=== PATIENT | female | born 1975 | race Caucasian/White ===

== ENCOUNTER 2019-06-13 18:17 | Emergency (ER) | payer BC ==
[2019-06-13] MEDS ORDERED: KETOROLAC 30 MG/ML VIAL IVP ONE (18:26)
[2019-06-13] MEDS ORDERED: 0.9 % SODIUM CHLORIDE 1000ML 1,000 ML IV SCH (18:30)
--- NOTE | 2019-06-13 18:31 | Emergency Department Record ---
History of Present Illness - General Chief Complaint: Abdominal Pain Stated Complaint: LOWER ABD PAIN Time Seen by Provider: 06/13/19 18:25 Source: Patient Mode of Arrival: Ambulatory Limitations: No limitations - History of Present Illness Initial Comments: 43 yo female presents to ED for evaluation of lower abdominal pain symptoms described as "cramping" for the past 2-3 weeks. Patient denies urinary symptoms, vaginal discharge symptoms, fevers, chills, nausea, vomiting, or change in stools. Patient reports previous ablation, denies other abdominal surgeries. Patient did take Motrin this morning which improved her symptoms somewhat as well. Patient denies health problems at her baseline. MD Complaint: Abdominal pain -: Week(s) Location: Suprapubic Radiation: None Migration to: No migration, LUQ Quality: Cramping Consistency: Intermittent Improves With: Nothing Worsens With: Nothing Associated Symptoms: Denies other symptoms - Related Data Patient : No Home Medications Medication Instructions Recorded Confirmed Last Taken Escitalopram Oxalate [Lexapro] 10 mg PO DAILY 06/13/19 06/13/19 Unknown Temazepam 30 mg PO QHS 06/13/19 06/13/19 Unknown Previous Rx's Medication Instructions Recorded Clindamycin HCl 300 mg PO QID #39 capsule 06/13/19 Allergies Allergy/AdvReac Type Severity Reaction Status Date / Time sulfamethoxazole Allergy RASH Verified 06/13/19 18:29 [From Bactrim] trimethoprim [From Bactrim] Allergy RASH Verified 06/13/19 18:29 erythromycin base AdvReac vomit Verified 06/13/19 18:29 Review of Systems Constitutional: Denies: Chills, Fever, Malaise, Night sweats Eyes: Denies: Eye discharge, Eye pain, Photophobia ENT: Denies: Congestion, Ear pain, Epistaxis Respiratory: Denies: Cough, Dyspnea Cardiovascular: Denies: Chest pain, Dyspnea on exertion Endocrine: Denies: Fatigue, Heat or cold intolerance Gastrointestinal: Reports: Abdominal pain. Denies: Constipation, Nausea, Vomiting Genitourinary: Denies: Incontinence, Retention Musculoskeletal: Denies: Arthralgia, Back pain Skin: Denies: Bruising, Change in color Neurological: Denies: Abnormal gait, Confusion, Headache Psychiatric: Denies: Anxiety Hematological/Lymphatic: Denies: Anemia, Blood Clots Physical Exam - General General Appearance: Alert, Oriented x3, Cooperative, Mild distress Limitations: No limitations - Head Head exam: Atraumatic, Normocephalic, Normal inspection Head exam detail: negative: Abrasion, Contusion, Augustin's sign, General tenderness, Hematoma, Laceration - Eye Eye exam: Normal appearance. negative: Conjunctival injection, Periorbital swelling, Periorbital tenderness, Scleral icterus - ENT Ear exam: negative: Auricular hematoma, Auricular trauma Nasal Exam: negative: Active bleeding, Discharge, Dried blood, Foreign body Mouth exam: negative: Drooling, Laceration, Muffled voice, Tongue elevation - Neck Neck exam: Normal inspection. negative: Meningismus, Tenderness - Respiratory Respiratory exam: Normal lung sounds bilaterally. negative: Respiratory distress, Rhonchi, Stridor, Wheezes - Cardiovascular Cardiovascular Exam: Regular rate, Normal rhythm, Normal heart sounds - GI/Abdominal GI/Abdominal exam: Soft, Tenderness, Other (No rebound, guarding, or peritoneal signs on examination. Mild discomfort with palpation of the lower abdomen.). negative: Distended, Rebound, Rigid - Rectal Rectal exam: Deferred - exam: Deferred - Extremities Extremities exam: Normal inspection. negative: Pedal edema, Tenderness - Back Back exam: Denies: CVA tenderness (R), CVA tenderness (L) - Neurological Neurological exam: Alert, Normal gait, Oriented X3 - Psychiatric Psychiatric exam: Normal affect, Normal mood - Skin Skin exam: Normal color. negative: Abrasion Type of lesion: negative: abrasion Course - Reevaluation(s) Reevaluation #1: 06/13/19 19:05 Initial laboratory studies were reviewed and appear grossly unremarkable for an acute process. Reevaluation #2: 06/13/19 20:09 CT Abdomen and Pelvis: Bicornate uterus on examinatio, appears fluid-filled Recommend pelvic US for further evaluation. Reevaluation #3: 06/13/19 20:28 UA was reviewed: 0-2 RBCs 0-2 WBCs 2+ Bacteria Negative Patient was updated on all results, offered to treat for potential endometritis with Clindamycin and to return to ED for US in the AM. Patient reports that she has not had a menses following her procedure in February (ablation) Has an appointment with Dr. Perales ([employer]) next Monday. Patient is declining to return to ED for US at this timw, will treat with Clindamycin as discussed. Patient appears stable for discharge with instructions to return for any worsening of her symptoms. Medical Decision Making - Lab Data Result diagrams: 06/13/19 18:00 06/13/19 18:00 Disposition Disposition: Discharge Clinical Impression: Uterine cramping Disposition: Home, Self-Care Condition: (2) Stable Instructions: Abdominal Pain (ED) Additional Instructions: Return to ED if your symptoms worsen or if you have any concerns. Ibuprofen and Clindamycin as directed. Follow-up with Dr. Angella Fleming as scheduled. Prescriptions: Clindamycin HCl 300 mg PO QID #39 capsule Forms: Patient Portal Access Time of Disposition: 20:30 Quality - Quality Measures Quality Measures: N/A - Blood Pressure Screening Does Patient Have Any of the Following: No Blood Pressure Classification: Hypertensive Reading Systolic Measurement: 161 Diastolic Measurement: 103 Screening for High Blood Pressure: < First Hypertensive BP, F/U Documented > [G8950] First Hypertensive Follow-up Interventions: Referral to alternative/primary care provider.
[2019-06-13 18:46] LABS: ABSOLUTE NEUTROPHIL COUNT 5.66; BASO % 0.6 % (0-6); EOS % 2.7 % (0-6); GRAN % 66.7 % (47-80); HEMATOCRIT 40.2 % (35.0-47.0); HEMOGLOBIN 13.1 gm/dl (11.6-16.0); LYMPH % 23.4 % (16-45); MEAN CORPUSCULAR HEMOGLOBIN 28.7 pg (27-33); MEAN CORPUSCULAR HGB CONC 32.6 g/dl (32-36); MEAN PLATELET VOLUME 10.3 fl (7.4-10.4); MONO % 6.6 % (0-9); PLATELET COUNT 343 K/uL (130-400); RED BLOOD COUNT 4.57 M/uL (3.80-5.40); RED CELL DISTRIBUTION WIDTH 14.1 % (11.5-14.5); WHITE BLOOD COUNT W/O DIFF 8.5 K/uL (4.2-12.2)
[2019-06-13 19:02] LABS: BLOOD UREA NITROGEN 13 mg/dL (6-20)
[2019-06-13 19:03] LABS: BILIRUBIN,TOTAL < 0.20 mg/dL (0.2-1.0); CREATININE 0.8 mg/dL (0.5-0.9); EST GLOMERULAR FILTRATION RATE > 60 mL/min; LIPASE 49 U/L (13-60); TOTAL PROTEIN 6.7 g/dL (6.6-8.7)
[2019-06-13 19:05] LABS: GLUCOSE,RANDOM 144 mg/dL (74-109)
[2019-06-13 19:08] LABS: ALB/GLOB RATIO 1.7 (1.1-1.8); ALBUMIN 4.2 g/dL (4.0-5.0); ALKALINE PHOSPHATASE 88 U/L (35-104); ALT/SGPT 26 U/L (<33); AST/SGOT 16 U/L (10.0-35.0)
[2019-06-13 20:05] LABS: URINE APPEARANCE CLEAR; URINE BILIRUBIN NEGATIVE (NEGATIVE); URINE BLOOD NEGATIVE (NEGATIVE); URINE KETONE NEGATIVE (NEGATIVE); URINE LEUKOCYTE ESTERASE TRACE (NEGATIVE); URINE NITRITE POSITIVE (NEGATIVE)
[2019-06-13 20:10] LABS: URINE COLOR ORANGE
[2019-06-13 20:13] LABS: URINE BACTERIA 2+; URINE RBC 0 - 2 (NONE SEEN); URINE WBC 0 - 2 (0-2/hpf)
[2019-06-13] MEDS ORDERED: CLINDAMYCIN 150 MG CAP PO ONE (20:31)
--- NOTE | 2019-06-17 18:39 | CT SCAN REPORT ---
EXAM: CT SCAN ABDOMEN/PELVIS W CONTRAST HISTORY: LOWER ABDOMEN PAIN. COMPARISON: None. TECHNIQUE: After the uneventful administration of intravenous contrast, contiguous axial sections obtained through the abdomen and pelvis. Coronal and sagittal reformats provided. FINDINGS: Visualized lung bases are clear. Liver is fatty-infiltrated. Multiple low-attenuation lesions of the kidneys bilaterally are too small to characterize but statistically are cysts. Gallbladder is present and appears contracted. No pericholecystic fluid. The spleen, pancreas, and adrenals appear normal. Biliary tree is not dilated. No abdominal aortic aneurysm. Mesenteric vessels are grossly patent. GI tract is nondilated. Appendix is normal. No mesenteric or retroperitoneal adenopathy evident. The uterus appears to be septate or bicornuate. The endometrium appears fluid-filled. Abdominal wall grossly intact. There is mild spurring of the spine. IMPRESSION: 1. THERE APPEARS TO BE A SEPTATE OR BICORNUATE UTERUS. THE ENDOMETRIUM APPEARS FILLED WITH FLUID. PELVIC ULTRASOUND CAN FURTHER INVESTIGATE. 2. FATTY INFILTRATION OF THE LIVER. 3. ADDITIONAL FINDINGS, ABOVE. 4. THE ER WAS NOTIFIED BY VOICE CLIP. JOB NUMBER: [id number] MTDD
== END 2019-06-13 20:43 | disposition home or self-care (01) ==
LOC: ER 18:17
DX: N94.89 Other specified conditions associated with female genital organs and menstrual cycle (principal); R10.12 Left upper quadrant pain
CPT/HCPCS: 74177; 80053; 81001; 81025; 83690; 85025; 96374; 99284; J1885; J7030

== ENCOUNTER 2019-07-07 04:16 | Emergency (ER) | payer BC ==
[2019-07-07] MEDS ORDERED: ONDANSETRON HCL IV 4 MG/2 ML VIAL IV ONE (04:39)
[2019-07-07] MEDS ORDERED: 0.9 % SODIUM CHLORIDE 1,000 ML BAG IV ONE ×2 (04:39→05:38)
[2019-07-07] MEDS ORDERED: HYDROMORPHONE HCL 2 MG/ML VIAL IVP ONE ×2 (04:46→05:37)
--- NOTE | 2019-07-07 04:46 | Emergency Department Record ---
History of Present Illness - General Chief Complaint: Abdominal Pain Stated Complaint: ABDOMINAL PAIN Time Seen by Provider: 07/07/19 04:38 Source: Patient Mode of Arrival: Ambulatory - History of Present Illness Initial Comments: The patient was seen here on 06-15-19 for bilateral lower abdominal pain and was sent to her Power Line Installer. Dr. Perales for follow up. She had an ultrasound done in the office and was told her uterine lining was thickened and her uterus enlarged to twice normal in size. She has had two uterine ablations in the past and has another appointment scheduled for 07-16-19 for scheduling of a possible hysterectomy. Tonight she perez 8/10 lower abdominal pain radiating into both hips and low back, which has never happened before. She took tramadol at 0100, 2 adv il at 0300. Vomited twice. These medications have not controlled her pain. Onset/Timin -: Hour(s) Location: Bilateral flank, LLQ, RLQ Severity scale (1-10): 8 Quality: Sharp, Stabbing Consistency: Constant Improves With: Nothing Worsens With: Movement Associated Symptoms: Denies other symptoms - Related Data LMP (females 10-50): 3 months ago Patient : No Home Medications Medication Instructions Recorded Confirmed Last Taken Tramadol HCl [Ultram] 50 mg PO Q6H PRN 07/07/19 07/07/19 07/07/19 Previous Rx's Medication Instructions Recorded Hydrocodone/Acetaminophen [[place] 1 each PO Q8HR PRN #10 tablet 07/07/19 5-325 Tablet] Allergies Allergy/AdvReac Type Severity Reaction Status Date / Time sulfamethoxazole Allergy RASH Verified 06/13/19 18:29 [From Bactrim] trimethoprim [From Bactrim] Allergy RASH Verified 06/13/19 18:29 erythromycin base AdvReac vomit Verified 06/13/19 18:29 Travel Screening - Travel/Exposure Within Last 30 Days Have you traveled within the last 30 days?: No - Travel/Exposure Within Last Year Have you traveled outside the [place] in the last year?: No - Additonal Travel Details Have you been exposed to anyone with a communicable illness?: No - Travel Symptoms Symptom Screening: None Review of Systems Reviewed: No additional complaints except as noted below Constitutional: Reports: As per HPI. Denies: Chills, Fever, Malaise, Night sweats, Weakness, Weight change Eyes: Reports: As per HPI. Denies: Eye discharge, Eye pain, Photophobia, Vision change ENT: Reports: As per HPI. Denies: Congestion, Dental pain, Ear pain, Epistaxis, Hearing loss, Throat pain Respiratory: Reports: As per HPI. Denies: Cough, Dyspnea, Hemoptysis, Stridor, Wheezes Cardiovascular: Reports: As per HPI. Denies: Arrhythmia, Chest pain, Dyspnea on exertion, Edema, Murmurs, Orthopnea, Palpitations, Paroxysmal nocturnal dyspnea, Rheumatic Fever, Syncope Endocrine: Reports: As per HPI. Denies: Fatigue, Heat or cold intolerance, Polydipsia, Polyuria Gastrointestinal: Reports: As per HPI. Denies: Abdominal pain, Constipation, Diarrhea, Hematemesis, Hematochezia, Melena, Nausea, Vomiting Genitourinary: Reports: As per HPI. Denies: Abnormal menses, Discharge, Dyspareunia, Dysuria, Frequency, Hematuria, Incontinence, Retention, Urgency Musculoskeletal: Reports: As per HPI. Denies: Arthralgia, Back pain, Gout, Joint swelling, Myalgia, Neck pain Skin: Reports: As per HPI. Denies: Bruising, Change in color, Change in hair/nails, Lesions, Pruritus, Rash Neurological: Reports: As per HPI. Denies: Abnormal gait, Confusion, Headache, Numbness, Paresthesias, Seizure, Tingling, Tremors, Vertigo, Weakness Psychiatric: Reports: As per HPI. Denies: Anxiety, Auditory hallucinations, Depression, Homicidal thoughts, Suicidal thoughts, Visual hallucinations Hematological/Lymphatic: Reports: As per HPI. Denies: Anemia, Blood Clots, Easy bleeding, Easy bruising, Swollen glands Past Medical History - SOCIAL HISTORY Smoking Status: Never smoker Alcohol Use: None Drug Use: None - RESPIRATORY Hx Respiratory Disorders: No - CARDIOVASCULAR Hx Cardio Disorders: No - NEURO Hx Neuro Disorders: No - GI Hx GI Disorders: Yes Hx Reflux: Yes - Hx Genitourinary Disorders: Yes Hx Kidney Stones: Yes - ENDOCRINE Hx Endocrine Disorders: No - MUSCULOSKELETAL Hx Musculoskeletal Disorders: No - PSYCH Hx Psych Problems: Yes Hx Anxiety: Yes Hx Depression: Yes - HEMATOLOGY/ONCOLOGY Hx Hematology/Oncology Disorders: No Family Medical History Any Significant Family History?: No Physical Exam - General General Appearance: Alert, Oriented x3, Cooperative, Moderate distress - Head Head exam: Normal inspection - Eye Eye exam: Normal appearance, PERRL, Conjunctival injection, EOMI. negative: Nystagmus, Scleral icterus Pupils: Normal accommodation - ENT ENT exam: Normal exam, Mucous membranes moist, Normal external ear exam, Normal orophraynx, TM's normal bilaterally Ear exam: Normal external inspection. negative: External canal tenderness Nasal Exam: Normal inspection. negative: Discharge, Sinus tenderness Mouth exam: Normal external inspection, Tongue normal Teeth exam: Normal inspection. negative: Dental caries Throat exam: Normal inspection. negative: Tonsillar erythema, Tonsillar exudate - Neck Neck exam: Normal inspection, Full ROM. negative: Lymphadenopathy, Meningismus, Tenderness - Respiratory Respiratory exam: Normal lung sounds bilaterally. negative: Accessory muscle use, Respiratory distress - Cardiovascular Cardiovascular Exam: Regular rate, Normal rhythm, Normal heart sounds - GI/Abdominal GI/Abdominal exam: Soft, Normal bowel sounds, Tenderness (lower abdominal fullness over areas of pain bilaterally, left greater than right.). negative: Distended, Rebound, Rigid - Rectal Rectal exam: Deferred - exam: Deferred - Extremities Extremities exam: Normal inspection, Full ROM, Normal capillary refill. negative: Tenderness - Back Back exam: Reports: Normal inspection, Full ROM. Denies: CVA tenderness (R), CVA tenderness (L), Muscle spasm, Rash noted, Tenderness - Neurological Neurological exam: Alert, Normal gait, Oriented X3, Reflexes normal - Psychiatric Psychiatric exam: Normal affect, Normal mood - Skin Skin exam: Dry, Intact, Normal color, Warm Course Vital Signs 07/07/19 07/07/19 04:20 04:22 Temperature 97.9 F Pulse Rate [ 74 Pulse Ox Probe] Respiratory 20 Rate Blood Pressure 119/79 [Right Arm] Pulse Ox 98 - Reevaluation(s) Reevaluation #1: Pain has decreased to a 75/10 and her nausea is resolved after first dose of dilaudid. 07/07/19 06:39 Reevaluation #2: Patient now is 0-1/10 discomfort and is ready for DC home when CT report done. She is requesting someting stronger for her pain. 07/07/19 07:00 Medical Decision Making - Management Options MDM Management: No Additional Work-up Planned - Data Complexity MDM Data: Labs Ordered and/or Reviewed, X-Ray Ordered and/or Reviewed (CT Abd/Pelvis: Probable septate uterus with marked endometrial thickening. Recommend pelvic ultrasound if that has not already been performed. Per [facility].) - Lab Data Result diagrams: 07/07/19 04:40 07/07/19 04:40 Disposition Disposition: Discharge Clinical Impression: Uterine enlargement Disposition: Home, Self-Care Condition: (1) Good Instructions: Abdominal Pain (ED) Additional Instructions: [place] as directed as needed for pain. Increase fluids. Call Dr. Perales office today for follow up appointment this week. Prescriptions: Hydrocodone/Acetaminophen [[place] 5-325 Tablet] 1 each PO Q8HR PRN #10 tablet PRN Reason: Severe Abdominal Pain Forms: Patient Portal Access Quality - Quality Measures Quality Measures: N/A - Blood Pressure Screening Does Patient Have Any of the Following: No Blood Pressure Classification: Normal BP Reading Systolic Measurement: 118 Diastolic Measurement: 67 Screening for High Blood Pressure: < Normal BP, F/U Not Required > [G8783]
[2019-07-07 04:54] LABS: ABSOLUTE NEUTROPHIL COUNT 6.21; BASO % 0.5 % (0-6); EOS % 2.2 % (0-6); GRAN % 63.2 % (47-80); HEMATOCRIT 40.2 % (35.0-47.0); MEAN CELL VOLUME 88.5 fl (81-97); MEAN CORPUSCULAR HEMOGLOBIN 28.6 pg (27-33); MEAN CORPUSCULAR HGB CONC 32.3 g/dl (32-36); MEAN PLATELET VOLUME 10.6 fl (7.4-10.4); MONO % 9.1 % (0-9); PLATELET COUNT 317 K/uL (130-400); RED BLOOD COUNT 4.54 M/uL (3.80-5.40); RED CELL DISTRIBUTION WIDTH 13.8 % (11.5-14.5); WHITE BLOOD COUNT W/O DIFF 9.8 K/uL (4.2-12.2)
[2019-07-07 05:01] LABS: BLOOD UREA NITROGEN 13 mg/dL (6-20); CREATININE 0.7 mg/dL (0.5-0.9); EST GLOMERULAR FILTRATION RATE > 60 mL/min
[2019-07-07 05:02] LABS: TOTAL PROTEIN 6.6 g/dL (6.6-8.7)
[2019-07-07 05:04] LABS: GLUCOSE,RANDOM 124 mg/dL (74-109)
[2019-07-07 05:07] LABS: ALB/GLOB RATIO 1.6 (1.1-1.8); ALBUMIN 4.1 g/dL (4.0-5.0); ALKALINE PHOSPHATASE 77 U/L (35-104); ALT/SGPT 20 U/L (<33); AST/SGOT 16 U/L (10.0-35.0)
[2019-07-07 05:50] LABS: URINE APPEARANCE CLEAR; URINE BILIRUBIN NEGATIVE (NEGATIVE); URINE BLOOD SMALL (NEGATIVE); URINE COLOR YELLOW; URINE GLUCOSE (UA) NEGATIVE (NEGATIVE); URINE KETONE NEGATIVE (NEGATIVE); URINE LEUKOCYTE ESTERASE TRACE (NEGATIVE); URINE NITRITE NEGATIVE (NEGATIVE); URINE PROTEIN NEGATIVE (NEGATIVE); URINE UROBILINOGEN 0.2 E.U./dL (0.20 - 1.00)
[2019-07-07 05:56] LABS: URINE WBC 0 - 2 (0-2/hpf)
[2019-07-07 05:57] LABS: HCG,QUALITATIVE URINE NEGATIVE (NEGATIVE); URINE BACTERIA FEW
--- NOTE | 2019-07-07 07:12 | CT SCAN REPORT ---
EXAMINATION: CT Abdomen and Pelvis with IV Contrast EXAM DATE: 07/07/2019 6:47 AM TECHNIQUE: CT imaging of the abdomen and pelvis was performed with intravenous contrast. Coronal and sagittal images were reconstructed. IV Contrast: The amount and type of contrast are recorded in the medical record. INDICATION: lower abdominal apin L>R. COMPARISON: 06/13/2019 ENCOUNTER: Not applicable CT ABDOMEN AND PELVIS FINDINGS: Abdomen: Mild fatty infiltration of the liver. No focal liver lesions. Normal spleen, pancreas, and a drenals. Kidneys demonstrate symmetric enhancement. No hydronephrosis. Multiple subcentimeter probabl e cysts bilaterally. Normal small bowel and appendix. Normal colon. No evidence of adenopathy. Pelvis: Small amount of free fluid. Enlarged septate uterus. Marked endometrial thickening, increased in prominence compared to previously. Normal bladder. There is spurring in the spine. Normal lung bases. IMPRESSION: 1. Probable septate uterus with marked endometrial thickening. Recommend pelvic ultrasound, if that h as not already been performed. Dictated by: Wicho Rosas MD on 07/07/2019 6:52 AM. .
== END 2019-07-07 07:34 | disposition home or self-care (01) ==
LOC: ER 04:16
DX: N85.2 Hypertrophy of uterus (principal); R10.84 Generalized abdominal pain; R11.2 Nausea with vomiting, unspecified
CPT/HCPCS: 99284 ×2; 96376; 96374; 96375; 96361; 85025; 80053; 81001; 81025; 74177; Q9967; J2405; J1170; J7030

== ENCOUNTER 2019-07-09 16:28 | Emergency (ER) | payer BC ==
[2019-07-09] MEDS ORDERED: ONDANSETRON HCL IV 4 MG/2 ML VIAL IVP ONE (16:59)
[2019-07-09] MEDS ORDERED: KETOROLAC 30 MG/ML VIAL IVP ONE ×2 (16:59→17:57)
[2019-07-09] MEDS ORDERED: HYDROMORPHONE HCL 2 MG/ML VIAL IVP ONE ×2 (16:59→17:57)
--- NOTE | 2019-07-09 17:01 | Emergency Department Record ---
History of Present Illness - General Chief Complaint: Abdominal Pain Stated Complaint: RETURN FOR ABDOMINAL PAIN Time Seen by Provider: 07/09/19 16:55 Source: Patient, Family Mode of Arrival: Ambulatory Limitations: No limitations - History of Present Illness Initial Comments: 44 yo female presents with about 6 weeks of lower abdominal pain. She has been under care of Dr Barr of [employer] [employer] [facility] in [place]. She had an appointment today. She developed pain after the appointment and she was directed to the ED. On two CT scans in the ER ED the patient was found to have a septate or bicornate uterus with fluid. She has seen her PAPER GOODS MACHINE OPERATOR and the plan is for surgery but no date has been established. No fever. No diarrhea. No bleeding. She has had an US in the [facility] [employer] MACHINE OPER[facility] office. MD Complaint: Abdominal pain Onset/Timin -: Week(s) Location: Suprapubic, LLQ, RLQ Radiation: Back Severity: Moderate Severity scale (1-10): 9 Quality: Cramping Consistency: Constant, Intermittent Improves With: Nothing Worsens With: Nothing Associated Symptoms: Denies other symptoms - Related Data Previous Rx's Medication Instructions Recorded Hydrocodone/Acetaminophen [[place] 1 each PO Q8HR PRN #10 tablet 07/07/19 5-325 Tablet] Ondansetron [Zofran Odt] 4 mg PO Q8H #12 tab.rapdis 07/09/19 Allergies Allergy/AdvReac Type Severity Reaction Status Date / Time sulfamethoxazole Allergy RASH Verified 07/09/19 16:39 [From Bactrim] trimethoprim [From Bactrim] Allergy RASH Verified 07/09/19 16:39 erythromycin base AdvReac vomit Verified 07/09/19 16:39 Travel Screening - Travel/Exposure Within Last 30 Days Have you traveled within the last 30 days?: No - Travel/Exposure Within Last Year Have you traveled outside the [place] in the last year?: No - Additonal Travel Details Have you been exposed to anyone with a communicable illness?: No - Travel Symptoms Symptom Screening: None Review of Systems Constitutional: Denies: Chills, Fever, Malaise, Weakness Eyes: Denies: Eye discharge ENT: Denies: Congestion, Throat pain Respiratory: Denies: Cough, Dyspnea Cardiovascular: Denies: Chest pain, Palpitations, Syncope Endocrine: Denies: Fatigue Gastrointestinal: Reports: Abdominal pain, Nausea. Denies: Diarrhea, Vomiting Genitourinary: Reports: Abnormal menses. Denies: Dysuria, Urgency Musculoskeletal: Denies: Arthralgia, Back pain, Joint swelling, Myalgia Skin: Denies: Bruising, Change in color, Rash Neurological: Denies: Headache Psychiatric: Denies: Anxiety Hematological/Lymphatic: Denies: Easy bleeding, Easy bruising Past Medical History - SOCIAL HISTORY Smoking Status: Never smoker Alcohol Use: None Drug Use: None - RESPIRATORY Hx Respiratory Disorders: No - CARDIOVASCULAR Hx Cardio Disorders: No - NEURO Hx Neuro Disorders: No - GI Hx GI Disorders: Yes Hx Reflux: Yes - Hx Genitourinary Disorders: Yes Hx Kidney Stones: Yes - ENDOCRINE Hx Endocrine Disorders: No - MUSCULOSKELETAL Hx Musculoskeletal Disorders: No - PSYCH Hx Psych Problems: Yes Hx Anxiety: Yes Hx Depression: Yes - HEMATOLOGY/ONCOLOGY Hx Hematology/Oncology Disorders: No Family Medical History Any Significant Family History?: No Physical Exam - General General Appearance: Alert, Oriented x3, Cooperative, No acute distress Limitations: No limitations - Head Head exam: Atraumatic, Normal inspection - Eye Eye exam: Normal appearance, PERRL. negative: Conjunctival injection, Scleral i cterus - ENT ENT exam: Normal exam Ear exam: Normal external inspection Nasal Exam: Normal inspection Mouth exam: Normal external inspection - Neck Neck exam: Normal inspection - Respiratory Respiratory exam: Normal lung sounds bilaterally. negative: Respiratory distress - Cardiovascular Cardiovascular Exam: Regular rate, Normal rhythm, Normal heart sounds - GI/Abdominal GI/Abdominal exam: Soft, Tenderness (The abdomen is soft but tender in the lower abdomen). negative: Distended, Guarding, Rebound, Rigid - Extremities Extremities exam: Normal inspection - Back Back exam: Denies: CVA tenderness (R), CVA tenderness (L) - Neurological Neurological exam: Alert, Oriented X3 - Psychiatric Psychiatric exam: Normal affect, Normal mood. negative: Agitated, Anxious - Skin Skin exam: Dry, Intact, Normal color, Warm Course Vital Signs 07/09/19 16:41 Temperature 98 F Pulse Rate 70 Respiratory 18 Rate Blood Pressure 137/86 Pulse Ox 100 - Reevaluation(s) Reevaluation #1: 07/09/19 17:35 The labs were reviewed No significant abnormalities or changes in the labs The plan is for pain control and reevaluate 07/09/19 17:56 The labs were reviewed with the patient Her pain is improving at this time. Nausea 07/09/19 18:47 UA was negative We discussed the results of the tests and questions were answered at the time of discharge. The patient is doing well and is comfortable with DC. We discussed at length reasons to immediately return to the ED as well as close follow up with her [employer] MACHINE OPERATOR. The patient will call the PAPER GOODS MACHINE OPERATOR for close follow up of this ED visit to review this visit and the tests performed Medical Decision Making - Lab Data Result diagrams: 07/09/19 17:10 07/09/19 17:10 Disposition Disposition: Discharge Clinical Impression: Uterine cramping Disposition: Home, Self-Care Condition: (1) Good Instructions: Abdominal Pain (ED) Additional Instructions: Review this ER visit and the tests performed with your [employer] MACHINE OPERATOR doctor Return to the ER for a recheck if worse, any new concerns or questions Prescriptions: Ondansetron [Zofran Odt] 4 mg PO Q8H #12 tab.rapdis Forms: Patient Portal Access Time of Disposition: 18:32 Quality - Quality Measures Quality Measures: N/A - Blood Pressure Screening Does Patient Have Any of the Following: No Blood Pressure Classification: Pre-Hypertensive BP Reading Systolic Measurement: 137 Diastolic Measurement: 86 Screening for High Blood Pressure: < Pre-Hypertensive BP, F/U Documented > [G8950] Pre-Hypertensive Follow-up Interventions: Referral to alternative/primary care provider.
[2019-07-09 17:14] LABS: ABSOLUTE NEUTROPHIL COUNT 10.11; HEMOGLOBIN 13.3 gm/dl (11.6-16.0); MEAN CELL VOLUME 88.4 fl (81-97); MEAN CORPUSCULAR HEMOGLOBIN 28.7 pg (27-33); MEAN CORPUSCULAR HGB CONC 32.4 g/dl (32-36); MEAN PLATELET VOLUME 10.4 fl (7.4-10.4); PLATELET COUNT 342 K/uL (130-400); RED BLOOD COUNT 4.64 M/uL (3.80-5.40); RED CELL DISTRIBUTION WIDTH 13.7 % (11.5-14.5); WHITE BLOOD COUNT W/O DIFF 12.4 K/uL (4.2-12.2)
[2019-07-09 17:23] LABS: PLATELET ESTIMATE NORMAL (NORMAL)
[2019-07-09 17:26] LABS: BLOOD UREA NITROGEN 11 mg/dL (6-20); CREATININE 0.7 mg/dL (0.5-0.9); EST GLOMERULAR FILTRATION RATE > 60 mL/min
[2019-07-09 17:27] LABS: TOTAL PROTEIN 7.1 g/dL (6.6-8.7)
[2019-07-09 17:29] LABS: GLUCOSE,RANDOM 117 mg/dL (74-109)
[2019-07-09 17:32] LABS: ALB/GLOB RATIO 1.6 (1.1-1.8); ALBUMIN 4.4 g/dL (4.0-5.0); ALKALINE PHOSPHATASE 78 U/L (35-104); ALT/SGPT 20 U/L (<33); AST/SGOT 16 U/L (10.0-35.0)
[2019-07-09] MEDS ORDERED: ONDANSETRON 4 MG ODT TABLET SL ONE (18:40)
[2019-07-09 18:42] LABS: URINE APPEARANCE CLEAR; URINE BILIRUBIN NEGATIVE (NEGATIVE); URINE BLOOD SMALL (NEGATIVE); URINE COLOR YELLOW; URINE GLUCOSE (UA) NEGATIVE (NEGATIVE); URINE KETONE NEGATIVE (NEGATIVE); URINE LEUKOCYTE ESTERASE NEGATIVE (NEGATIVE); URINE NITRITE NEGATIVE (NEGATIVE); URINE PROTEIN NEGATIVE (NEGATIVE); URINE UROBILINOGEN 0.2 E.U./dL (0.20 - 1.00)
[2019-07-09 18:46] LABS: URINE EPITHELIAL CELLS 0 - 2 (FEW); URINE RBC 0 - 2 (NONE SEEN); URINE WBC NONE SEEN (0-2/hpf)
[2019-07-09 19:00] LABS: HCG,QUALITATIVE URINE NEGATIVE (NEGATIVE)
== END 2019-07-09 18:59 | disposition home or self-care (01) ==
LOC: ER 16:28
DX: N94.89 Other specified conditions associated with female genital organs and menstrual cycle (principal); R11.0 Nausea; R10.84 Generalized abdominal pain
CPT/HCPCS: 80053; 81001; 81025; 85027; 96374; 96375; 96376; 99284; J1885; J2405

== ENCOUNTER 2019-11-16 12:41 | Emergency (ER) | payer BC ==
[2019-11-16] MEDS ORDERED: ONDANSETRON HCL IV 4 MG/2 ML VIAL IV ONE (13:03)
[2019-11-16] MEDS ORDERED: 0.9 % SODIUM CHLORIDE 1,000 ML BAG IV ONE ×2 (13:03→14:44)
[2019-11-16] MEDS ORDERED: ACETAMINOPHEN 1,000 MG/100 ML BTL IVPB ONE (13:04)
--- NOTE | 2019-11-16 13:10 | Emergency Department Record ---
History of Present Illness - General Chief complaint: Flu Like Symptoms Stated complaint: FLU LIKE SYMPTOMS Time Seen by Provider: 11/16/19 12:56 Source: Patient, Family Mode of Arrival: Ambulatory Limitations: No limitations - History of Present Illness Initial comments: The patient is here due to not feeling well for the last 3 days. She started out with a cough and congestion then developed a ROMERO, body aches, fever, and now mainly vomiting and diarrhea. She is not able to keep anything down. There is no blood in the vomit or stool, or any back or neck pain. The patient did not get a flu shot this year. MD Complaint: Generalized weakness, Lack of energy Onset/Timin -: Days(s) Location: Generalized Severity scale (1-10): 8 Quality: Aching Consistency: Constant Improves with: None Worsens with: None Associated Symptoms: Fever/chills, Headaches, Nausea/vomiting - Related Data Previous Rx's Medication Instructions Recorded Ondansetron [Zofran Odt] 4 mg SL .Q4-6H PRN #12 tab.rapdis 11/16/19 Allergies Allergy/AdvReac Type Severity Reaction Status Date / Time sulfamethoxazole Allergy RASH Verified 07/09/19 16:39 [From Bactrim] trimethoprim [From Bactrim] Allergy RASH Verified 07/09/19 16:39 erythromycin base AdvReac vomit Verified 07/09/19 16:39 Travel/Exposure Screening - Travel/Exposure Within Last 30 Days Have you traveled within the last 30 days?: No - Additonal Travel/Exposure Details Have you been exposed to anyone with a communicable illness?: No Review of Systems Constitutional: Reports: Malaise. Denies: Chills, Fever Eyes: Denies: Eye discharge ENT: Reports: Congestion Respiratory: Reports: Cough. Denies: Dyspnea Cardiovascular: Denies: Chest pain Endocrine: Reports: Fatigue Gastrointestinal: Reports: Diarrhea, Nausea, Vomiting. Denies: Hematemesis Genitourinary: Denies: Dysuria Musculoskeletal: Denies: Arthralgia Neurological: Denies: Abnormal gait Past Medical History - SOCIAL HISTORY Smoking Status: Never smoker Alcohol Use: Rare - RESPIRATORY Hx Respiratory Disorders: No - CARDIOVASCULAR Hx Cardio Disorders: No - NEURO Hx Neuro Disorders: No - GI Hx GI Disorders: Yes Hx Reflux: Yes - Hx Genitourinary Disorders: Yes Hx Kidney Stones: Yes - ENDOCRINE Hx Endocrine Disorders: No - MUSCULOSKELETAL Hx Musculoskeletal Disorders: No - PSYCH Hx Psych Problems: Yes Hx Anxiety: Yes Hx Depression: Yes - HEMATOLOGY/ONCOLOGY Hx Hematology/Oncology Disorders: No Family Medical History Any Significant Family History?: No Physical Exam - General General Appearance: Alert, Oriented x3, Cooperative, No acute distress - Head Head exam: Atraumatic, Normocephalic, Normal inspection - Eye Eye exam: Normal appearance, PERRL, EOMI. negative: Conjunctival injection - ENT Throat exam: Normal inspection. negative: Tonsillar erythema, Tonsillar exudate - Neck Neck exam: Normal inspection, Full ROM. negative: Meningismus (The neck is very supple.), Tenderness - Respiratory Respiratory exam: Normal lung sounds bilaterally. negative: Respiratory distr ess - Cardiovascular Cardiovascular Exam: Regular rate, Normal rhythm, Normal heart sounds - GI/Abdominal GI/Abdominal exam: Soft, Normal bowel sounds. negative: Rebound, Rigid, Tenderness - Extremities Extremities exam: Normal inspection, Full ROM, Normal capillary refill. negati ve: Tenderness - Back Back exam: Reports: Normal inspection, Other (Neg Kernig's or Brudsinski's reflexes.). Denies: Vertebral tenderness - Neurological Neurological exam: Alert, Normal gait, Oriented X3. negative: Abnormal gait, Altered, Motor sensory deficit Course Vital Signs 11/16/19 12:51 Temperature 98.8 F Pulse Rate 108 H Respiratory 20 Rate Blood Pressure 138/85 Pulse Ox 95 - Reevaluation(s) Reevaluation #1: the patient is doing better at this time. She still does have the head pain but the nausea is improved. 11/16/19 14:45 Reevaluation #2: The patient is doing a lot better at this time. Her temp is normal and she has been able to urinate. The ROMERO is almost gone and the patient has no neck pain, stiffness or fever. I did explain that I do feel the illness is due to a viral gastroenteritis and will provide the patient with Zofran for home. She is to see her doctor this week and to return to the ER for any worsening issues. 11/16/19 16:07 Medical Decision Making - Lab Data Result diagrams: 11/16/19 13:00 11/16/19 13:00 Disposition Disposition: Discharge Clinical Impression: Viral gastroenteritis Disposition: Home, Self-Care Condition: (2) Stable Instructions: Acute Nausea and Vomiting (ED) Additional Instructions: Please use the Zofran for nausea and alternate Tylenol with Motrin every 4 hours. Please drink plenty of fluids and see your family doctor this week for recheck. Return to the ER for any worsening symptoms, fever, vomiting, or neck pain. Please do not take the Lexapro while you are taking the Zofran. Prescriptions: Ondansetron [Zofran Odt] 4 mg SL .Q4-6H PRN #12 tab.rapdis PRN Reason: Nausea Forms: Patient Portal Access Time of Disposition: 16:04 Quality - Quality Measures Quality Measures: N/A - Blood Pressure Screening View Details: Yes Does Patient Have Any of the Following: No Blood Pressure Classification: Pre-Hypertensive BP Reading Systolic Measurement: 138 Diastolic Measurement: 85 Screening for High Blood Pressure: < Pre-Hypertensive BP, F/U Documented > [[id number]] Pre-Hypertensive Follow-up Interventions: Referral to alternative/primary care lakeisha demarco.
[2019-11-16 13:18] LABS: ABSOLUTE NEUTROPHIL COUNT 3.44; HEMATOCRIT 41.9 % (35.0-47.0); HEMOGLOBIN 13.7 gm/dl (11.6-16.0); MEAN CELL VOLUME 86.6 fl (81-97); MEAN CORPUSCULAR HEMOGLOBIN 28.3 pg (27-33); MEAN CORPUSCULAR HGB CONC 32.7 g/dl (32-36); MEAN PLATELET VOLUME 10.6 fl (7.4-10.4); PLATELET COUNT 280 K/uL (130-400); RED BLOOD COUNT 4.84 M/uL (3.80-5.40); RED CELL DISTRIBUTION WIDTH 14.8 % (11.5-14.5); WHITE BLOOD COUNT W/O DIFF 4.8 K/uL (4.2-12.2)
[2019-11-16 13:26] LABS: PLATELET ESTIMATE NORMAL (NORMAL)
[2019-11-16 13:31] LABS: BLOOD UREA NITROGEN 13 mg/dL (6-20)
[2019-11-16 13:32] LABS: CREATININE 0.8 mg/dL (0.5-0.9); EST GLOMERULAR FILTRATION RATE > 60 mL/min; LIPASE 37 U/L (13-60); TOTAL PROTEIN 7.5 g/dL (6.6-8.7)
[2019-11-16 13:34] LABS: GLUCOSE,RANDOM 151 mg/dL (74-109)
[2019-11-16 13:37] LABS: ALBUMIN 4.3 g/dL (4.0-5.0); ALKALINE PHOSPHATASE 85 U/L (35-104); ALT/SGPT 38 U/L (<33); AST/SGOT 26 U/L (10.0-35.0); C-REACTIVE PROTEIN 2.73 mg/dL (<0.5)
[2019-11-16 13:40] LABS: BILIRUBIN,DIRECT < 0.2 mg/dL (0-0.3)
--- NOTE | 2019-11-16 14:03 | RADIOLOGY REPORT ---
EXAMINATION: Two View Chest Radiographs EXAM DATE: 11/16/2019 1:32 PM TECHNIQUE: Frontal and lateral views INDICATION: cough COMPARISON: None ENCOUNTER: Not applicable FINDINGS: No pulmonary infiltrate, pneumothorax, or pleural effusion. The cardiomediastinal silhouette is withi n normal limits. IMPRESSION: No acute pulmonary disease. Dictated by: Samuel Cook MD on 11/16/2019 2:00 PM. .
[2019-11-16] MEDS ORDERED: KETOROLAC 30 MG/ML VIAL IVP ONE (14:16)
[2019-11-16 15:46] LABS: URINE APPEARANCE CLEAR; URINE BILIRUBIN NEGATIVE (NEGATIVE); URINE BLOOD MODERATE (NEGATIVE); URINE COLOR YELLOW; URINE GLUCOSE (UA) NEGATIVE (NEGATIVE); URINE KETONE 15 mg/dL (NEGATIVE); URINE LEUKOCYTE ESTERASE NEGATIVE (NEGATIVE); URINE NITRITE NEGATIVE (NEGATIVE); URINE PROTEIN NEGATIVE (NEGATIVE); URINE UROBILINOGEN 0.2 E.U./dL (0.20 - 1.00)
[2019-11-16 15:52] LABS: URINE WBC NONE SEEN (0-2/hpf)
== END 2019-11-16 16:21 | disposition home or self-care (01) ==
LOC: ER 12:41
DX: A08.4 Viral intestinal infection, unspecified (principal); R53.1 Weakness; R11.10 Vomiting, unspecified; R51 Headache; R05 Cough
CPT/HCPCS: 71046; 80048; 80076; 81001; 81025; 83690; 85027; 86140; 96361; 96365; 96375; 99284; J1885; J2405; J7030